=== PATIENT | male | born 1965 | race Caucasian/White ===

== ENCOUNTER 2021-01-26 19:01 | Observation (INO) | payer OTHER ==
[~2021-01-26] VITALS: Ht 175.3 cm; Wt 87.5 kg
[~2021-01-26 19:01] MED LIST: ALBU2.5V8 IH; CETI10TA16 PO; CHLO25CA9 PO; LISI20TA18 PO; LORA-434 PO; PANT40TA77 PO; TRAZ-118 PO; albuterol inhaler; clonazepam; lisinopril; trazodone
[2021-01-27] MEDS ORDERED: MULTIVIT INFUSN,ADULT 4,VIT K 10 ML, THIAMINE INJ 100 MG, FOLIC ACID INJ 1 MG in IV NOR... IV ONE (00:15)
[2021-01-27] MEDS ORDERED: HALOPERIDOL LACTATE 5 MG/ML VIAL. IVP PRN (00:15)
--- NOTE | 2021-01-27 00:26 | PHYS DOC ---
Past Medical History Past Medical History: Hypertension Additional Past Medical Histor: History of pulmonary nodules, alcoholism, hypertension Past Surgical History: No Surgical History Additional Past Surgical Histo: RIGHT ANKLE SURGERY Smoking Status: Current Every Day Smoker Alcohol Use: Heavy Drug Use: None General Adult EDM: Chief Complaint: OTHER COMPLAINTS HPI: HPI: Patient is a 55-year-old male who presents emergency department chief complaint of "I need to stop drinking ". Patient reports drinking a half a gallon of vodka daily, reports his last drink was at 1300 today, reports he has a history of alcohol withdrawal seizures. Patient denies allergies to medications, reports he is homeless, does not have a primary care physician, reports prescription medications as lisinopril, sertraline, and trazodone. Patient reports being a daily cigarette smoker, daily drinker, occasionally smokes marijuana when it is available. Denies chest pain, shortness of breath, visual disturbances, homicidal suicidal ideation, denies dizziness or syncopal episodes. Denies abdominal pain, nausea, vomiting, diarrhea, rashes to the skin denies recent fever or chills, denies other physical complaints or physical concerns Review of Systems: Review of Systems: 14 body systems of review of systems have been reviewed. See HPI for pertinent positives and negative responses, otherwise all other systems are negative, nonpertinent or noncontributory. Constitutional: Negative except as outlined in HPI above. Skin: Negative except as outlined in HPI above. Eyes: Negative except as outlined in HPI above. HENT: Negative except as outlined in HPI above. Respiratory: Negative except as outlined in HPI above. Cardiovascular: Negative except as outlined in HPI above. GI: Negative except as outlined in HPI above. : Negative except as outlined in HPI above. Musculoskeletal: Negative except as outlined in HPI above. Integument: Negative except as outlined in HPI above. Neurologic: Negative except as outlined in HPI above. Endocrine: Negative except as outlined in HPI above. Lymphatic: Negative except as outlined in HPI above. Psychiatric: Negative except as outlined in HPI above. Heart Score: C/O Chest Pain: No Risk Factors: Risk Factors: DM, Current or recent (<one month) smoker, HTN, HLP, family history of CAD, obesity. Risk Scores: Score 0 - 3: 2.5% MACE over next 6 weeks - Discharge Home Score 4 - 6: 20.3% MACE over next 6 weeks - Admit for Clinical Observation Score 7 - 10: 72.7% MACE over next 6 weeks - Early Invasive Strategies Current Medications: Current Medications Medications (Trade) Dose Ordered Sig/Clem Start Time Stop Time Status Last Admin Dose Admin Lorazepam (Ativan Inj) 2 mg 1X ONCE 01/27/21 00:00 01/27/21 00:02 DC Multivitamins 10 ml/Thiamine HCl 100 mg/Folic Acid 1 mg/Sodium Chloride 1,011.2 ml @ 1,000.088 mls/hr 1X ONCE 01/27/21 00:15 01/27/21 01:15 Allergies: Allergies: Allergies Coded Allergies Type Severity Reaction Last Updated Verified No Known Drug Allergies 08/11/13 No Physical Exam: PE: Constitutional: Well developed, well nourished, no acute distress, non-toxic appearance. 55-year-old male in no apparent distress. Strong smell of EtOH during exam. HENT: Normocephalic, atraumatic. Eyes: Conjunctiva normal, no discharge. Neck: Normal range of motion, no stridor. Cardiovascular: No cyanosis appreciated, distal cap refill less than 2 seconds. Lungs & Thorax: Patient is in no respiratory distress, no audible adventitious lung sounds appreciated. Abdomen: Nontender, no abnormalities noted. Skin: Warm, dry, no erythema, no rash. Back: No tenderness, no deformities. Extremities: No tenderness, no cyanosis, no clubbing, ROM intact, no edema. Patient's extremities mild tremor. Distal cap refill less than 2 seconds. Neurologic: Alert and oriented X 3, normal motor function, normal sensory function, no focal deficits noted. Psychologic: Affect normal, judgement normal, mood normal. Current Patient Data: Vital Signs: Vital Signs Date Time Temp Pulse Resp B/P (MAP) Pulse Ox O2 Delivery O2 Flow Rate FiO2 01/26/21 23:44 98.6 102 20 161/90 (113) 93 Room Air 98.6 EKG: EKG: EKG performed at 0006 shows a sinus tachycardia without other ectopy, [place] interval 0.148, QTc interval 0.421, no acute STEMI, no ACS, no acute ischemia appreciated. EKG interpreted by ED attending physician Dr. Batres. [] Radiology/Procedures: Radiology/Procedures: [] Course & Med Decision Making: Course & Med Decision Making Pertinent Labs and Imaging studies reviewed. (See chart for details) 55-year-old male, vital signs reviewed, presents emergency department concerning help with alcohol cessation. Physical exam concerning for delirium tremens, will consult PAT produce team lead for alcoholism/alcohol withdraw detox. EKG, saline lock, banana bag, Ativan, cardiac monitoring, pulse ox monitoring, blood pressure monitoring, patient CIWA score equals 18. Discussed patient case and ED work-up with ED attending physician Dr. Batres, patient to be admitted to Dr. Rajan to telemetry unit for alcohol withdrawal syndrome, delirium tremens, acute alcoholism. Pending PAT produce team lead evaluation. Patient in ED awaiting bed assignment. End of shift report given to Dr. Batres, patient continues to await bed assignment. Irlanda Disclaimer: Irlanda Disclaimer: This electronic medical record was generated, in whole or in part, using a voice recognition dictation system. Departure Departure Impression: Primary Impression: Alcohol intoxication Qualified Codes: F10.929 - Alcohol use, unspecified with intoxication, unspecified Additional Impressions: Alcohol withdrawal syndrome Qualified Codes: F10.239 - Alcohol dependence with withdrawal, unspecified Delirium tremens Alcoholism Disposition: ADMITTED INPATIENT Admitting Physician: YINKA (Admit to Dr. Rajan to telemetry unit) Condition: GUARDED Referrals: NO PCP (PCP) EVAN CLARK APRN Jan 27, 2021 00:26
[2021-01-27 01:21] LABS: BASO % 0 % (0-3); EOS # 0.2 x10^3/uL (0.0-0.7); EOS % 2 % (0-3); HEMATOCRIT 45.6 % (39.0-53.0); HEMOGLOBIN 15.2 g/dL (13.0-17.5); LYMPH % 43 % (24-48); MEAN CORPUSCULAR HEMOGLOBIN 33 pg (25-35); MEAN CORPUSCULAR HGB CONC 33 g/dL (31-37); MEAN CORPUSCULAR VOLUME 99 fL (79-100); MONO # 0.7 x10^3/uL (0.0-1.1); MONO % 10 % (0-9); NEUT # 3.2 x10^3/uL (1.8-7.7); NEUT % 45 % (31-73); PLATELET COUNT 249 x10^3/uL (140-400); RED BLOOD COUNT 4.62 x10^6/uL (4.30-5.70); RED CELL DISTRIBUTION WIDTH 14.3 % (11.5-14.5); WHITE BLOOD COUNT 7.1 x10^3/uL (4.0-11.0)
[2021-01-27 01:29] LABS: CALCIUM 9.1 mg/dL (8.5-10.1); CREATININE 0.9 mg/dL (0.7-1.3); GFR 87.6; POTASSIUM 4.5 mmol/L (3.5-5.1)
[2021-01-27 01:35] LABS: ALBUMIN 3.8 g/dL (3.4-5.0); DIRECT BILIRUBIN 0.2 mg/dL (0.0-0.2); MAGNESIUM 1.9 mg/dL (1.8-2.4); PHOSPHORUS 2.4 mg/dL (2.6-4.7); TOTAL BILIRUBIN 0.2 mg/dL (0.2-1.0); TOTAL PROTEIN 7.6 g/dL (6.4-8.2)
--- NOTE | 2021-01-27 04:36 | RAD ---
EXAM: CHEST ONE VIEW. HISTORY: Tachycardia. COMPARISON: 12/08/2020. FINDINGS: A frontal view of the chest is obtained. There are no confluent infiltrates. There is no pneumothorax or pleural effusion. The heart is not en larged. IMPRESSION: 1. No confluent infiltrates. Electronically signed by: Kay Landeros MD (01/27/2021 4:34 AM) [facility]
[2021-01-27 05:26] VITALS: BP 141/84
--- NOTE | 2021-01-27 05:30 | NUR ---
The patient, TIERRA WHITE, 55 y/o, M admitted by JAMES BARAJAS III, DO, was given written information regarding hospital policies, unit procedures and contact persons. PT IS UNDER THE INFLUENCE, TREMORS AND ANXIEY ARE APPARENT. PT HAS HAD MULTIPLE STAFF ATTEMPT TO INSERT AN IV. SPOKE WITH DR BARAJAS ABOUT IV MEDS TO INCLUDE PO OR IM. WHEEZES IN UPPER LOBES. PT IS UNKEPT. PT STATES HE LIVES UNDER A BRIDGE. Valuables were checked and .AND DOCUMENTED IN THE EMAR LCRN
[2021-01-27] MEDS ORDERED: HALOPERIDOL LACTATE 5 MG/ML VIAL. IM/IV PRN (06:29)
--- NOTE | 2021-01-27 06:59 | EKG ---
[facility] [address] [place] [address] Test Date: 2021-01-27 Test Time: 00:06:36 Pat Name: TIERRA WHITE Department: Room: Gender: M Respiratory Tech: : 1965 Requested By: EVAN CLARK Order Number: [id number] Reading MD: Measurements Intervals [place] Rate: 101 P: 55 CT: 148 QRS: -43 QRSD: 88 T: 51 QT: 324 QTc: 421 Interpretive Statements SINUS TACHYCARDIA ABNORMAL LEFT AXIS DEVIATION R-S TRANSITION ZONE IN V LEADS DISPLACED TO THE RIGHT LEFT ANTERIOR FASCICULAR BLOCK ABNORMAL ECG RI6.01 No previous ECG available for comparison
[2021-01-27] MEDS ORDERED: ACETAMINOPHEN 325 MG TABLET. PO PRN (07:15)
[2021-01-27 07:23] VITALS: BP 140/86
[2021-01-27] MEDS ORDERED: INFLUENZA VAX SCREEN BY RX. MC ONE (09:00)
[2021-01-27] MEDS ORDERED: FLU VACC QUAD 21-22 (6MOS+) PF 0.5 ML SYRINGE. VAX IM ONE (09:00)
[2021-01-27] MEDS ORDERED: MULTIVIT INFUSN,ADULT 4,VIT K 10 ML, THIAMINE INJ 100 MG, FOLIC ACID INJ 1 MG in IV NOR... IV SCH (09:00)
--- NOTE | 2021-01-27 09:27 | HP ---
ADMIT DATE: 01/27/2021 CHIEF COMPLAINT: "I need to stop drinking." HISTORY OF PRESENT ILLNESS: The patient is a pleasant 55-year-old male who drinks and smokes heavily. He presented to the ER with shaking, wants to go through alcohol treatment. I discussed the case with ER physician. We admitted the patient with alcohol withdrawal protocol and we hope to get him to an alcohol treatment center. PAST MEDICAL HISTORY: Alcoholism and tobacco abuse, hypertension, pulmonary nodules, right ankle surgery. ALLERGIES: None. FAMILY HISTORY: Diabetes. SOCIAL HISTORY: He drinks and smokes heavily. MEDICATIONS: Reviewed. Please refer to the MRAD. REVIEW OF SYSTEMS: GENERAL: No history of weight change, weakness or fevers. SKIN: No bruising, hair changes or rashes. EYES: No blurred, double or loss of vision. NOSE AND THROAT: No history of nosebleeds, hoarseness or sore throat. HEART: No history of palpitations, chest pain or shortness of breath on exertion. LUNGS: Denies cough, hemoptysis, wheezing or shortness of breath. GASTROINTESTINAL: Denies changes in appetite, nausea, vomiting, diarrhea or constipation. GENITOURINARY: No history of frequency, urgency, hesitancy or nocturia. NEUROLOGIC: He complains of shaking. PSYCHIATRIC: No history of panic, anxiety or depression. ENDOCRINE: No history of heat or cold intolerance, polyuria or polydipsia. EXTREMITIES: Denies muscle weakness, joint pain, pain on walking or stiffness. PHYSICAL EXAMINATION: VITALS: Within normal limits and are stable. GENERAL: He is sleeping and has a banana bag. HEENT: Normal cephalic atraumatic, external auditory canals are patent EYES: Extraocular muscles are intact, pupils are equally round and reactive to light and accommodation MUSCULOSKELETAL: Well developed, well nourished, good range of motion ENDOCRINE: No thyromegaly was palpated LYMPHATICS: No cervical chain or axillary nodes were noted HEMATOPOIETIC: No bruising NECK: Supple, no JVD, no thyromegaly was noted. LUNGS: Clear to auscultation in all lung novoa without rhonchi or wheezing. HEART: RRR, S1, S2 present. Peripheral pulses intact, no obvious murmurs were noted. ABDOMEN: Soft, nontender. Positive bowel sounds no organomegaly, normal bowel sounds. EXTREMITIES: Without any cyanosis, clubbing, or edema. Pedal pulses intact, Homans sign is negative. NEUROLOGIC: He is currently sleeping. PSYCHIATRIC: He is currently asleep. SKIN: No ulcerations or rashes, good skin turgor, no jaundice. VASCULAR: Good capillary refill, neurovascular bundle appears to be intact. LABORATORY DATA: White count 7, hemoglobin 15. Electrolytes are normal. ASSESSMENT: Alcohol withdrawal. The patient will be admitted. We will use alcohol withdrawal protocol. Consult certified social workers in health care for alcohol treatment center if possible. Home meds. Deep venous thrombosis prophylaxis. Full code. We have given him a flu shot, p.r.n. Ativan, IV banana bag, and rule out COVID-19. ASIF DR: ASIF/chanda TID: [id number]
[2021-01-27 11:00] VITALS: BP 162/115
--- NOTE | 2021-01-27 11:07 | NUR ---
SS following for discharge planning. SS reviewed pt chart and discussed with pt RN. Pt is from home and is currently on room air. COVID19 negative. ETOH. CIWA protocol. PAT team referral made for assessment and recommendations. SS will continue to follow for discharge planning.
--- NOTE | 2021-01-27 11:40 | NUR ---
DISCHARGED PATIENT TO HOME. DISCHARGE INSTRUCTIONS GIVEN TO FAMILY AND VERBALIZED UNDERSTANDING. PIV AND HEART MONITOR REMOVED. ESCORTED PATIENT OFF UNIT PER WHEELCHAIR INTO A PRIVATE VEHICLE. Addendum: 01/27/21 at 1427 by Jose Godfrey RN WRONG PATIENT.
[2021-01-27 15:00] VITALS: BP 152/88
--- NOTE | 2021-01-27 16:30 | NUR ---
SENIOR [employer]UX UNIX ENGINEER ATTEMPTED TO HAVE AN ACCESS MULTIPLE TIMES WITH NO SUCCESS. DR. BARAJAS NOTIFIED.
[2021-01-27 19:00] VITALS: BP 157/90
--- NOTE | 2021-01-27 19:10 | NUR ---
Assessment completed vss pt anxious and all over the bed pt has multiple request at this time will resume care and continue to monitor pt.l Call light in reach.
[2021-01-27] MEDS: HALOPERIDOL 5 MG TABLET. PO PRN (20:29)
[2021-01-27] MEDS: NICOTINE 21MG PATCH. TD SCH (20:30)
[2021-01-27 23:33] VITALS: BP 144/82
[2021-01-28] VITALS (7 sets, daily range): BP systolic 118–169; BP diastolic 68–104
[2021-01-28] MEDS: NICOTINE POLACRILEX 2MG GUM PACKAGE of 12. BC PRN ×7 (06:13→23:30)
[2021-01-28] MEDS: NICOTINE 21MG PATCH. TD SCH (08:46)
[2021-01-28] MEDS: THIAMINE 100 MG TABLET. PO SCH (08:46)
[2021-01-28] MEDS: MULTIVITAMIN with MINERAL TABLET. PO SCH (08:47)
[2021-01-28] MEDS: HALOPERIDOL 5 MG TABLET. PO PRN ×2 (08:47→23:29)
[2021-01-28] MEDS: FOLIC ACID 1 MG TABLET. PO SCH (08:47)
--- NOTE | 2021-01-28 11:56 | PDOC ---
[employer] PROGRESS NOTE Date of Service DOS: DATE: 01/28/21 TIME: 11:46 Chief Complaint Chief Complaint Need help with alcohol cessation Alcoholism Tobacco abuse Hypertension Pulmonary nodules Right ankle surgery History of Present Illness History of Present Illness 01/28/2021 Patient seen and examined. Chart reviewed. Discussed with RN. Patients is shaking at bedside examination. Patient is awake and alert. Rapid blinking. Vitals/I&O Vitals/I&O: Vital Signs Date Time Temp Pulse Resp B/P (MAP) Pulse Ox O2 Delivery O2 Flow Rate FiO2 01/28/21 10:59 98.0 79 22 134/82 (99) 96 Room Air 98.0 I & O 01/27/21 01/27/21 01/28/21 15:00 23:00 07:00 Intake Total 850 ml 1050 ml 1530 ml Output Total 900 ml 900 ml Balance 850 ml 150 ml 630 ml Physical Exam General: Alert, Cooperative Heart: Normal S1, Normal S2, Other (tachycardia) Lungs: Clear Abdomen: Normal bowel sounds Skin: Other (several abrations on the tip of the nose from previous falls.) Assessment and Plan Assessmemt and Plan Problems Medical Problems: (1) Alcohol intoxication Status: Acute (2) Alcohol withdrawal syndrome Status: Acute (3) Alcoholism Status: Acute (4) Delirium tremens Status: Acute Need help with alcohol cessation Alcoholism Tobacco abuse Hypertension Pulmonary nodules Right ankle surgery Plan: Alcohol withdrawal protocol (Ativan, multi-vitamin, thiamine, folic acid) Cardiac monitoring Ordered PT/OT Encourage PO intake Trend labs Home meds Full code Discharge pending disposition Comment Review of Relevant I have reviewed the following items van (where applicable) has been applied. Medications: Current Medications Medications (Trade) Dose Ordered Sig/Clem Route PRN Reason Start Time Stop Time Status Last Admin Dose Admin Thiamine Mononitrate (Vitamin B-1) 100 mg DAILY PO 01/28/21 09:00 01/28/21 08:46 Multivitamins (Thera M Plus) 1 tab DAILY PO 01/28/21 09:00 01/28/21 08:47 Folic Acid (Folic Acid) 1 mg DAILY PO 01/28/21 09:00 01/28/21 08:47 Nicotine (Nicoderm Cq 21mg) 1 patch DAILY TD 01/27/21 20:15 01/28/21 08:46 Nicotine Polacrilex (Nicorette Gum) 1 each PRN Q1HR PRN BC SMOKING CESSATION 01/27/21 20:15 01/28/21 11:00 Justifications for Admission Other Justification JAMES BARAJAS III DO Jan 28, 2021 11:56
--- NOTE | 2021-01-28 12:52 | NUR ---
SS following up with discharge planning. SS reviewed pt chart and discussed with pt RN. Pt is currently on room air. COVID19 negative. Pt reporting that he is homeless. Miko from PAT team visited with pt this morning. PAT team sent referral to [facility] in [facility], . Mirrors checking to see if bed is available today or tomorrow. Pt provided with resources for [facility], [facility], and . Pt encouraged to seek a sponsor. Pt provided contact information to DCF to check on his [employer]. SS will continue to follow for discharge planning. Addendum: 01/28/21 at 1538 by ISIDRO ALVARADO SS Bed available at [facility], [address] [place] [address], [facility] [id number], tomorrow, 01/29/2021, at 1100. Pt will discharge tomorrow and go to [facility] at 09 via [employer] transportation. Tracking#[id number]. Pt, Dr. Rajan, and RN notified.
--- NOTE | 2021-01-28 19:30 | NUR ---
Pt in bed assessment completed vss poc explained pt denied pain, pt anxious and has tremors will medicate pt and resume care.
[2021-01-28] MEDS: cloNIDine HCL 0.1 MG TABLET PO PRN (23:38)
[2021-01-29] MEDS: NICOTINE POLACRILEX 2MG GUM PACKAGE of 12. BC PRN ×3 (02:56→08:27)
[2021-01-29 03:00] VITALS: BP 112/89
[2021-01-29 06:21] VITALS: BP 158/105
--- NOTE | 2021-01-29 07:45 | NUR ---
Assumed care of patient this AM. Patient has pressed the call light repeatedly and aggressively requesting coffee and a "shot". Entered patients room to perform assessment and advised patient that he will discharge this AM to rehab and transport is scheduled for 944. Verbalized understanding
[2021-01-29 08:25] VITALS: BP 158/105
[2021-01-29] MEDS: FOLIC ACID 1 MG TABLET. PO SCH (08:25)
[2021-01-29] MEDS: cloNIDine HCL 0.1 MG TABLET PO PRN (08:25)
[2021-01-29] MEDS: MULTIVITAMIN with MINERAL TABLET. PO SCH (08:25)
[2021-01-29] MEDS: THIAMINE 100 MG TABLET. PO SCH (08:26)
[2021-01-29] MEDS: NICOTINE 21MG PATCH. TD SCH (08:26)
--- NOTE | 2021-01-29 08:38 | SNU/HH DC ---
DISCHARGE ORDERS DISCHARGE INFORMATION: FINAL DIAGNOSIS Problems Medical Problems: (1) Alcohol intoxication Status: Acute (2) Alcohol withdrawal syndrome Status: Acute (3) Alcoholism Status: Acute (4) Delirium tremens Status: Acute CONDITION ON DISCHARGE: Stable CODE STATUS: Code Status: Full GROUP HOME: SNF STAY <30 DAYS: No HOSPICE: HOSPICE: No HOSPICE EVAL & TREAT: No LTAC: ADMIT TO LTAC: No POST DISCHARGE ORDERS: ACTIVITY ORDERS: Activity as tolerated WEIGHT BEARING STATUS: As tolerated DIET AFTER DISCHARGE: Cardiac OTHER ORDERS: Discharge to [facility] rehab CHECKS AFTER DISCHARGE: CHECKS AFTER DISCHARGE: Check blood press - daily TREATMENT/EQUIPMENT ORDERS: ADAPTIVE EQUIPMENT NEEDED: None DISCHARGE MEDICATIONS: Home Meds Active Scripts Lorazepam (ATIVAN) 1 Mg Tablet, 1 MG PO Q4-6HRS PRN for TREMORS, #20 TAB 0 Refills Prov:LAURO LLOYD MD 12/10/20 Trazodone Hcl (TRAZODONE HCL) 50 Mg Tablet, 1 TAB PO QHS for Depression, #30 TAB 2 Refills Prov:LAURO LLOYD MD 12/10/20 Lisinopril (LISINOPRIL) 20 Mg Tablet, 1 TAB PO DAILY for HTN, #30 TAB 5 Refills Prov:LAURO LLOYD MD 12/10/20 Albuterol Sulfate (PROAIR HFA INHALER) 8.5 Gm Hfa.aer.ad, 2 PUFF IH PRN Q4-6HRS PRN for wheezing for 21 Days, #1 INHALER 2 Refills Prov:LAURO LLOYD MD 12/10/20 Pantoprazole Sodium (PANTOPRAZOLE SODIUM ) 40 Mg Tablet.dr, 40 MG PO DAILYAC for GERD, #30 TAB 2 Refills Prov:LAURO LLOYD MD 12/10/20 JAMES BARAJAS III DO Jan 29, 2021 08:38
--- NOTE | 2021-01-29 09:47 | NUR ---
Since speaking with patient this AM, patient has repeatedly pressed call light requesting too leave now. I again advised that transport is scheduled for 944 from an outside transportation. Patient stated he wanted to leave and walked out of his room. When redirected to go back to his room he tried to walk into 2 different patients room. I advised that the next call will be to security if his behavior does not improve.
[2021-01-29] MEDS: HALOPERIDOL 5 MG TABLET. PO PRN (11:18)
--- NOTE | 2021-01-29 14:43 | DS ---
DATE OF DISCHARGE: 01/29/2021 ADMITTING DIAGNOSIS: Alcohol withdrawal. DISCHARGE DIAGNOSIS: Resolving alcohol withdrawal. HOSPITAL COURSE: The patient is a pleasant middle-aged male who presented with alcohol withdrawal. He wants to quit drinking. We gave him alcohol withdrawal protocol. Today, I saw and examined him. He was at his baseline. We are going to discharge to [facility] [place]. DISPOSITION: [facility]. ACTIVITY: As tolerated. DIET: Low sodium. DISCHARGE MEDICATIONS: Please see the MRAD. TOTAL TIME: 32 minutes. IGOR/PAUL DR: Gurdeep TID: [id number]
== END 2021-01-29 11:30 ==
LOC: ER 19:01 → 6 SOUTH 01-27 00:30 → INTOOBSV 01-27 00:30
PROVIDERS: ADMIT Internal Medicine; ATTEND Internal Medicine
DX: F10.231 Alcohol dependence with withdrawal delirium (principal); F17.200 Nicotine dependence, unspecified, uncomplicated; F12.90 Cannabis use, unspecified, uncomplicated; R91.1 Solitary pulmonary nodule; I10 Essential (primary) hypertension; Y90.9 Presence of alcohol in blood, level not specified; Z20.822 Contact with and (suspected) exposure to COVID-19; Z83.3 Family history of diabetes mellitus; Z98.890 Other specified postprocedural states; Z23 Encounter for immunization
CPT/HCPCS: 36415; 71045; 80053; 80076; 82553; 83735; 84100; 84484; 85025; 87426; 90471; 90686; 93005; 96365; 96372; 96375; 99285; G0378; G0480; J1630; J2060; J3411; J3490; J7030; G0379

== ENCOUNTER 2021-06-21 14:40 | Observation (INO) | payer OTHER ==
[~2021-06-21] VITALS: Ht 175.3 cm; Wt 95.3 kg
[2021-06-21] MEDS ORDERED: MULTIVIT INFUSN,ADULT 4,VIT K 10 ML, THIAMINE INJ 100 MG, FOLIC ACID INJ 1 MG in IV NOR... IV ONE (15:00)
[2021-06-21] MEDS ORDERED: ONDANSETRON PF 4 MG/2 ML VIAL. IVP ONE ×2 (15:00→20:30)
--- NOTE | 2021-06-21 15:16 | PHYS DOC ---
Past Medical History Past Medical History: Alcoholism, Hypertension Additional Past Medical Histor: History of pulmonary nodules, alcoholism, hypertension Past Surgical History: Other Additional Past Surgical Histo: RIGHT ANKLE SURGERY Smoking Status: Current Every Day Smoker Alcohol Use: Heavy Drug Use: None General Adult EDM: Chief Complaint: ALCOHOL INTOXICATION HPI: HPI: Patient is a 56 year old male with history of hypertension, alcoholism, who presents to the ED today requesting to go to alcohol rehab facility. Patient states he drinks half a gallon of vodka every day, he states last night he drank heavily. He states he cannot remember how much he drank but it was "alot". He states this morning he tried to detox himself, he states he started shaking and had a 1/4 of beer and started vomiting. He also states he fell down this morning and has an abrasion on the right knee. He states his feet have been numb since yesterday. He is homeless. He states he uses marijuana if he finds some. Denies hitting his head when he fell, denies any loss of consciousness. He states he is a heavy smoker and has a chronic cough. Review of Systems: Review of Systems: Constitutional: Denies fever or chills. [] Eyes: Denies change in visual acuity. [] HENT: Denies nasal congestion or sore throat. [] Respiratory: Reports chronic cough, denies shortness of breath Cardiovascular: Denies chest pain or edema. [] GI: Denies abdominal pain, nausea, vomiting, bloody stools or diarrhea. [] : Denies dysuria. [] Musculoskeletal: Denies any back pain, reports falling on his right knee, reports bilateral feet numbness Integument: Denies rash. [] Neurologic: Denies headache, focal weakness or sensory changes. [] Psychiatric: Reports alcohol intoxication, homelessness Heart Score: C/O Chest Pain: N/A Risk Factors: Risk Factors: DM, Current or recent (<one month) smoker, HTN, HLP, family history of CAD, obesity. Risk Scores: Score 0 - 3: 2.5% MACE over next 6 weeks - Discharge Home Score 4 - 6: 20.3% MACE over next 6 weeks - Admit for Clinical Observation Score 7 - 10: 72.7% MACE over next 6 weeks - Early Invasive Strategies Current Medications: Current Medications Medications (Trade) Dose Ordered Sig/Clem Start Time Stop Time Status Last Admin Dose Admin Lorazepam (Ativan Inj) 1 mg 1X ONCE 06/21/21 15:00 06/21/21 15:01 DC Multivitamins 10 ml/Thiamine HCl 100 mg/Folic Acid 1 mg/Sodium Chloride 1,011.2 ml @ 1,000.088 mls/hr 1X ONCE 06/21/21 15:00 06/21/21 16:00 Ondansetron HCl (Zofran) 4 mg 1X ONCE 06/21/21 15:00 06/21/21 15:01 DC Allergies: Allergies: Allergies Coded Allergies Type Severity Reaction Last Updated Verified No Known Drug Allergies 06/21/21 No Physical Exam: PE: Constitutional: Well developed, well nourished, no acute distress, non-toxic appearance. [] HENT: Normocephalic, atraumatic, bilateral external ears normal, oropharynx moist, no oral exudates, nose normal. [] Eyes: PERRLA, EOMI, conjunctiva normal, no discharge. [] Neck: Normal range of motion, no tenderness, supple, no stridor. [] Cardiovascular: Tachycardic Lungs & Thorax: Bilateral breath sounds clear to auscultation [] Abdomen: Bowel sounds normal, soft, no tenderness, no masses, no pulsatile masses. [] Skin: Warm, dry, no erythema, no rash. [] Back: No tenderness, no CVA tenderness. [] Extremities: Abrasion noted on the right knee anterior aspect, no tenderness, no cyanosis, no clubbing, ROM intact, no edema. [] Neurologic: Alert and oriented X 3, normal motor function, normal sensory function, no focal deficits noted. [] Psychologic: Flat affect, tremors noted, appears intoxicated Current Patient Data: Vital Signs: Vital Signs Date Time Temp Pulse Resp B/P (MAP) Pulse Ox O2 Delivery O2 Flow Rate FiO2 06/21/21 14:40 98.7 118 23 164/103 (123) 96 Room Air 98.7 EKG: EKG: [] Radiology/Procedures: Radiology/Procedures: []PROCEDURE: KNEE RIGHT 4V Exam: XR KNEE 4 VIEWS WITH PATELLA_RT History: Fall. Knee pain. Comparison: None. Findings: Osseous mineralization is normal. No acute fracture or dislocaton. No significant degenerative changes. Soft tissues are unremarkable. Impression: 1. No acute osseous abnormality of the right knee. Electronically signed by: Urbano Carter MD (06/21/2021 4:36 PM) [facility] DICTATED and SIGNED BY: URBANO CARTER MD DATE: 06/21/21 [id number] PROCEDURE: CT HEAD AND CERVICAL SPINE WO CT HEAD AND C-SPINE WO History: Fall. Intoxicated. Head and neck pain. Comparison: None. Technique: Noncontrast CT of the head and cervical spine. Findings: CT HEAD: There is no evidence for intracranial mass or hemorrhage. There is no hydrocephalus or midline shift. No abnormal extra-axial fluid collections are present. No evidence of acute territorial infarction. The visualized paranasal sinuses and mastoid air cells are clear. The skull and scalp are within normal limits. CT CERVICAL SPINE: There is no evidence for fracture in the cervical spine. Reversal the normal cervical lordosis with apex at C4. Multilevel degenerative changes greatest from C3-C4 C5 C5 C6 and C6-C7 with near-complete disc height loss and circumferential disc osteophyte complex. Multilevel neural foraminal stenosis greatest on the right at the C4-C5, C5-C6 and C6-C7. No destructive osseous lesions are seen. Limited evaluation of the soft tissues of the neck and of the upper chest is unremarkable. Impression: 1. No acute intracranial findings. 2. No acute osseous abnormality in the cervical spine. ------- Exposure: One or more of the following individualized dose reduction techniques were utilized for this examination: 1. Automated exposure control 2. Adjustment of the mA and/or kV according to patient size 3. Use of iterative reconstruction technique. Electronically signed by: Urbano Carter MD (06/21/2021 4:21 PM) [facility] DICTATED and SIGNED BY: URBANO CARTER MD DATE: 06/21/21 [id number] 0 Course & Med Decision Making: Course & Med Decision Making Pertinent Labs and Imaging studies reviewed. (See chart for details) This is a 56-year-old male patient with history of alcohol abuse presenting today requesting to go to rehab for alcohol abuse. Patient drank heavily last night, he also drank a quarter bottle of beer today and started vomiting. Patient is also complaining of bilateral feet numbness, he is homeless and walks a lot. He also reports falling this morning denies any loss of consciousness or hitting his head on the ground. CT of the head, cervical spine are negative for any acute findings. Right knee x-ray is negative. CBC with a WBC of 14.5, CMP with nothing really acute, alcohol level 38 Patient has been given IV fluids including banana bag, Ativan given as needed. Ofelia from prior team came to arrange for patient's placement, RSI at the nurses note and stated this patient need to be cleared from COVID19 before they can accept him, they are also complaining patient is documented to have numbness to bilateral feet and they are worried he has a DVT. At this point this patient to be admitted pending the test they want to be admitted at [facility]. Venous Doppler of bilateral lower extremities were obtained which was negative. Irlanda Disclaimer: Irlanda Disclaimer: This electronic medical record was generated, in whole or in part, using a voice recognition dictation system. Departure Departure Impression: Primary Impression: Alcohol intoxication Qualified Codes: F10.929 - Alcohol use, unspecified with intoxication, unspecified Additional Impressions: Delirium tremens Fall Qualified Codes: W19.XXXA - Unspecified fall, initial encounter Contusion of right knee Qualified Codes: S80.01XA - Contusion of right knee, initial encounter Smoking addiction Disposition: ADMITTED INPATIENT Condition: STABLE Referrals: NO PCP (PCP) MARTIN QUINN APRN Jun 21, 2021 15:16
[2021-06-21 16:10] LABS: BASO # 0.2 x10^3/uL (0.0-0.2); BASO % 1 % (0-3); EOS # 0.1 x10^3/uL (0.0-0.7); EOS % 1 % (0-3); HEMATOCRIT 44.8 % (39.0-53.0); HEMOGLOBIN 14.8 g/dL (13.0-17.5); LYMPH # 1.8 x10^3/uL (1.0-4.8); LYMPH % 13 % (24-48); MEAN CORPUSCULAR HEMOGLOBIN 30 pg (25-35); MEAN CORPUSCULAR HGB CONC 33 g/dL (31-37); MEAN CORPUSCULAR VOLUME 92 fL (79-100); MONO # 1.3 x10^3/uL (0.0-1.1); MONO % 9 % (0-9); NEUT % 76 % (31-73); PLATELET COUNT 424 x10^3/uL (140-400); RED BLOOD COUNT 4.87 x10^6/uL (4.30-5.70); RED CELL DISTRIBUTION WIDTH 15.9 % (11.5-14.5); WHITE BLOOD COUNT 14.5 x10^3/uL (4.0-11.0)
[2021-06-21 16:15] LABS: CALCIUM 9.1 mg/dL (8.5-10.1); CREATININE 0.7 mg/dL (0.7-1.3); GFR 116.7; POTASSIUM 4.4 mmol/L (3.5-5.1)
[2021-06-21 16:21] LABS: ALBUMIN 3.7 g/dL (3.4-5.0); ALBUMIN/GLOBULIN RATIO 0.9 (1.0-1.7); TOTAL BILIRUBIN 0.8 mg/dL (0.2-1.0); TOTAL PROTEIN 7.7 g/dL (6.4-8.2)
--- NOTE | 2021-06-21 16:23 | RAD ---
CT HEAD AND C-SPINE WO History: Fall. Intoxicated. Head and neck pain. Comparison: None. Technique: Noncontrast CT of the head and cervical spine. Findings: CT HEAD: There is no evidence for intracranial mass or hemorrhage. There is no hydrocephalus or midline shift. No abnormal extra-axial fluid collections are present. No evidence of acute territorial infarction. The visualized paranasal sinuses and mastoid air cells are clear. The skull and scalp are within normal limits. CT CERVICAL SPINE: There is no evidence for fracture in the cervical spine. Reversal the normal cervical lordosis with apex at C4. Multilevel degenerative changes greatest from C3-C4 C5 C5 C6 and C6-C7 with near-complete disc height loss and circumferential disc osteophyte complex. Multilevel neural foraminal stenosis greatest on t he right at the C4-C5, C5-C6 and C6-C7. No destructive osseous lesions are seen. Limited evaluation of the soft tissues of the neck and of the upper chest is unremarkable. Impression: 1. No acute intracranial findings. 2. No acute osseous abnormality in the cervical spine. ------- Exposure: One or more of the following individualized dose reduction techniques were utilized for thi s examination: 1. Automated exposure control 2. Adjustment of the mA and/or kV according to patient size 3. Use of iterative reconstruction technique. Electronically signed by: Urbano Carter MD (06/21/2021 4:21 PM) [facility]
--- NOTE | 2021-06-21 16:38 | RAD ---
Exam: XR KNEE 4 VIEWS WITH PATELLA_RT History: Fall. Knee pain. Comparison: None. Findings: Osseous mineralization is normal. No acute fracture or dislocaton. No significant degenerative change s. Soft tissues are unremarkable. Impression: 1. No acute osseous abnormality of the right knee. Electronically signed by: Urbano Carter MD (06/21/2021 4:36 PM) [facility]
[2021-06-21 16:42] LABS: ACETAMIN < 2 mcg/ml (10-30); ETHANOL 38 mg/dL (0-10); SALIC 1.4 mg/dL (2.8-20.0)
[2021-06-21 18:12] LABS: BILIRUBIN,URINE NEGATIVE (NEG); CLARITY,URINE CLEAR; COLOR,URINE YELLOW; NITRITE,URINE NEGATIVE (NEG); PROTEIN,URINE NEGATIVE (NEG-TRACE); UROBILINOGEN,URINE 0.2 mg/dL (0.2 mg/dL)
[2021-06-21 18:26] LABS: BACTERIA,URINE 0 /HPF (0-FEW); RBC,URINE 0 /HPF (0-2); WBC,URINE RARE /HPF (0-4)
[2021-06-21 18:41] LABS: AMPHETAMINE/METHAMPHETAMINE NEG (NEG); BARBITURATES NEG (NEG); BENZODIAZEPINES POS (NEG); CANNABINOIDS NEG (NEG); COCAINE NEG (NEG); METHADONE NEG (NEG); OPIATES NEG (NEG); PHENCYCLIDINE NEG (NEG)
[2021-06-21] MEDS ORDERED: NICOTINE 21MG PATCH. TD STA (18:50)
[2021-06-21] MEDS ORDERED: IV NORMAL SALINE 1000ML BAG 1,000 ML IV ONE (20:30)
[2021-06-21] MEDS ORDERED: FAMOTIDINE 20 MG/2 ML VIAL IVP ONE (20:30)
[2021-06-21] MEDS ORDERED: ACETAMINOPHEN 325 MG TABLET. PO PRN (23:15)
[2021-06-21] MEDS ORDERED: cloNIDine HCL 0.1 MG TABLET PO PRN (23:15)
[2021-06-21] MEDS ORDERED: ONDANSETRON PF 4 MG/2 ML VIAL. IVP PRN (23:15)
--- NOTE | 2021-06-22 00:35 | RAD ---
Exam: US BILATERAL LOWEREXTREMITY VENOUS DOPPLER Indication: B feet numbness swelling Technique: Color-flow and pulsed wave duplex ultrasound with compression of venous structures of th e bilateral lower extremities. Comparison: None Available. Findings: Duplex ultrasound with compression of the deep venous structures of the bilateral lower ext remities from the common femoral vein through the popliteal vein is negative for DVT. The posterior t ibial and peroneal veins are segmentally visualized and patent where seen. Normal venous waveforms an d augmentation are noted throughout. Impression: No evidence for DVT in the bilateral lower extremities. Electronically signed by: Raghu Islas MD (06/22/2021 12:33 AM) [facility]
--- NOTE | 2021-06-22 00:40 | NUR ---
The patient, TIERRA WHITE, 56 y/o, M admitted by FIORDALIZA MENDOZA MD, for ETOH to room 526 was given written information regarding hospital policies, unit procedures and contact persons. HIPPA code given to Patient. Patient oriented to room, bed, phone, call light and POC. Call light in reach, Patient instructed to call for assistance to ambulate. Patient verbalized understanding. See admission assessment/documentation. Valuables were checked and Patient requesting medications not sent to Pharmacy as he misplaced claim slip last time and was unable to get medications from Pharmacy. Patient states "I want them as close to me as possible." Patient agrreable to lock up in med room.
[2021-06-22 00:45] VITALS: BP 163/111
--- NOTE | 2021-06-22 01:55 | RAD ---
XR CHEST 1V INDICATION: cough . COMPARISON STUDY: 01/27/2021. FINDINGS: Lungs: Normal lung volume. No pulmonary mass or consolidation. The tracheobronchial tree and hilar st ructures are normal. Pleura: No pleural effusion or pneumothorax. Heart and Mediastinum: The cardiomediastinal silhouette is normal. The great vessels of the thorax ar e normal. IMPRESSION: No consolidation. Electronically signed by: Raghu Islas MD (06/22/2021 1:52 AM) [facility]
[2021-06-22 03:00] VITALS: BP 143/72
[2021-06-22] MEDS ORDERED: LISI-130 PO (03:03)
[2021-06-22] MEDS ORDERED: DULO30CA2 PO (03:05)
[2021-06-22] MEDS ORDERED: HYDR25TA PO (03:06)
[2021-06-22] MEDS ORDERED: BUSP10TA PO (03:06)
[2021-06-22] MEDS ORDERED: TRAZ-123 PO (03:07)
[2021-06-22] MEDS ORDERED: CARV12.511 PO (03:10)
--- NOTE | 2021-06-22 05:19 | NUR ---
Medications counted and placed in security bag. Contents 1 ironer or presser, 1 bottle of Trazodone 100Mg 8 tablets, Blue bottle of Hydroxyzine HCL 25 MG 70 tablets, Carvedilol 12.5 MG 176 tablets, Zapata bottle Hydroxyzine HCL 25 MG 13 tablets, Buspirone 10 MG 57 tablets, Duloxetine DR 30 MG 27 tablets, Lisinopril 40 MG 88 tablets. Placed in med room until family could come get or medication sent to Pharmacy after family comes to see Patient. Addendum: 06/22/21 at 0528 by NINOSKA ROY RN claim slip [id number] stuck in clear sleeve in Patient's chart.
[2021-06-22 07:00] VITALS: BP 158/59
[2021-06-22] MEDS ORDERED: ACETAMINOPHEN 325 MG TABLET. PO PRN (07:15)
[2021-06-22] MEDS ORDERED: ONDANSETRON PF 4 MG/2 ML VIAL. IVP PRN (07:15)
--- NOTE | 2021-06-22 07:28 | PDOC1 ---
History and Physical Date of Admission Date of Admission DATE: 06/22/21 TIME: 07:08 Identification/Chief Complaint Chief Complaint Alcohol withdrawal Source Source: Chart review, Patient History of Present Illness History of Present Illness Mr Modi is a 56 yo male w/ PMHx HTN, alcohol use disorder who presents to the ED c/o tremors, felt he was detoxing from alcohol. Patient states he drinks half a gallon of vodka every day and when he felt he was withdrawing he tried to drink a beer and vomited. He also states he fell down and has an abrasion on the right knee. He states his feet have been numb for a couple days. He is homeless, sleeps on friends couches, and is trying to get into a skilled nursing. He states he is a heavy smoker and has a chronic cough. Asking for nicotine patch + gum. No recent travel or sick contacts. WBC 14.5, Hb 14.8, platelets 424, NA 137, K4.4, BUN 5, CR 0.7, glucose 106, calcium 9.1, bilirubin 0.8, AST 14, ALT 17, alkaline phosphatase 69, lipase 60, albumin 3.7, urine drug screen positive for ethanol and benzodiazepines ethyl alcohol at 1453 was 38, acetaminophen undetectable, salicylate 1.4. Urine bland. CT head and cervical spine with no acute abnormalities. Chest radiograph no acute abnormalities Right knee radiograph with no abnormalities Lower extremity venous Dopplers negative for DVT Past Medical History Cardiovascular: HTN Psych: Anxiety, Addictions Past Surgical History Past Surgical History: Tonsillectomy Family History Family History: Hypertension Social History Smoke: 2 packs per day ALCOHOL: heavy Drugs: None Current Problem List Problem List Problems Medical Problems: (1) Alcohol intoxication Status: Acute (2) Contusion of right knee Status: Acute (3) Delirium tremens Status: Acute (4) Fall Status: Acute (5) Smoking addiction Status: Acute Current Medications Current Medications Current Medications Multivitamins 10 ml/Thiamine HCl 100 mg/Folic Acid 1 mg/Sodium Chloride 1,011.2 ml @ 1,000.088 mls/hr 1X ONCE IV Last administered on 06/21/21at 15:53; Start 06/21/21 at 15:00; Stop 06/21/21 at 16:00; Status DC Lorazepam (Ativan Inj) 1 mg 1X ONCE IVP Last administered on 06/21/21at 15:53; Start 06/21/21 at 15:00; Stop 06/21/21 at 15:01; Status DC Ondansetron HCl (Zofran) 4 mg 1X ONCE IVP Last administered on 06/21/21at 15:53; Start 06/21/21 at 15:00; Stop 06/21/21 at 15:01; Status DC Lorazepam (Ativan Inj) 1 mg 1X ONCE IVP Last administered on 06/21/21at 17:21; Start 06/21/21 at 17:30; Stop 06/21/21 at 17:31; Status DC Nicotine (Nicoderm Cq 21mg) 1 patch 1X STAT TD Last administered on 06/21/21at 19:19; Start 06/21/21 at 18:50; Stop 06/21/21 at 18:51; Status DC Lorazepam (Ativan Inj) 2 mg 1X ONCE IVP Last administered on 06/21/21at 20:51; Start 06/21/21 at 20:30; Stop 06/21/21 at 20:31; Status DC Sodium Chloride 1,000 ml @ 1,000 mls/hr 1X ONCE IV Last administered on 06/21/21at 20:53; Start 06/21/21 at 20:30; Stop 06/21/21 at 21:29; Status DC Ondansetron HCl (Zofran) 4 mg 1X ONCE IVP Last administered on 06/21/21at 21:03; Start 06/21/21 at 20:30; Stop 06/21/21 at 20:31; Status DC Famotidine (Pepcid Vial) 20 mg 1X ONCE IVP Last administered on 06/21/21at 21:04; Start 06/21/21 at 20:30; Stop 06/21/21 at 20:31; Status DC Ondansetron HCl (Zofran) 4 mg PRN Q8HRS PRN IVP NAUSEA/VOMITING 1ST CHOICE; Start 06/21/21 at 23:15; Stop 06/22/21 at 23:14 Acetaminophen (Tylenol) 650 mg PRN Q4HRS PRN PO FEVER > 100.3'F; Start 06/21/21 at 23:15; Stop 06/22/21 at 23:14 Multivitamins 10 ml/Thiamine HCl 100 mg/Folic Acid 1 mg/Sodium Chloride 1,011.2 ml @ 100 mls/ hr DAILY IV ; Start 06/22/21 at 09:00; Stop 06/25/21 at 19:07 Lorazepam (Ativan Inj) 2 mg PRN Q1HR PRN IV For CIWA 8-14 Last administered on 06/22/21at 02:47; Start 06/21/21 at 23:15 Clonidine HCl (Catapres) 0.1 mg PRN Q1HR PRN PO SBP > 180 or DBP > 100, MRX3; Start 06/21/21 at 23:15 Active Scripts Active Proair Hfa Inhaler (Albuterol Sulfate) 8.5 Gm Hfa.aer.ad 2 Puff IH PRN Q4-6HRS PRN 21 Days Reported Carvedilol (Carvedilol) 12.5 Mg Tablet 12.5 Mg PO BIDWMEALS Trazodone Hcl 100 Mg Tablet 1 Tab PO QHS Hydroxyzine Hcl 25 Mg Tablet 1 Tab PO TID Buspirone Hcl 10 Mg Tablet 1 Tab PO BID Cymbalta (Duloxetine Hcl) 30 Mg Capsule.dr 1 Cap PO DAILY Lisinopril 40 Mg Tablet 1 Tab PO DAILY Allergies Allergies: Coded Allergies: No Known Drug Allergies (Unverified , 06/21/21) ROS General: YES: Fatigue, Malaise; No: Chills, Night Sweats, Appetite, Other PSYCHOLOGICAL ROS: YES: Anxiety, Irritablity, Memory difficulties, Mood Swings, Obsessive thoughts; No: Behavioral Disorder, Concentration difficultie, Decreased libido, Depression, Disorientation, Hallucinations, Hostility, Physical abuse, Sexual abuse, Sleep disturbances, Suicidal ideation, Other Eyes: No Blurry vision, No Decreased vision, No Double vision, No Dry eyes, No Excessive tearing, No Eye Pain, No Itchy Eyes, No Loss of vision, No Photophobia, No Scotomata, No Uses contacts, No Uses glasses, No Other HEENT: No: Heacaches, Visual Changes, Hearing change, Nasal congestion, Nasal discharge, Oral lesions, Sinus pain, Sore Throat, Epistaxis, Sneezing, Snoring, Tinnitus, Vertigo, Vocal changes, Other ALLERGY AND IMMUNOLOGY: No: Hives, Insect Bite Sensitivity, Itchy/Watery Eyes, Nasal Congestion, Post Nasal Drip, Seasonal Allergies, Other Hematological and Lymphatic: No: Bleeding Problems, Blood Clots, Blood Transfusions, Brusing, Night Sweats, Pallor, Swollen Lymph Nodes, Other ENDOCRINE: No: Breast Changes, Galactorrhea, Hair Pattern Changes, Hot Flashes, Malaise/lethargy, Mood Swings, Palpitations, Polydipsia/polyuria, Skin Changes, Temperature Intolerance, Unexpected Weight Changes, Other Breast: No New/Changing Breast Lumps, No Nipple changes, No Nipple discharge, No Other Respiratory: No: Cough, Hemoptysis, Orthopnea, Pleuritic Pain, Shortness of breath, SOB with excertion, Sputum Changes, Stridor, Tachypnea, Wheezing, Other Cardiovascular: No Chest Pain, No Palpitations, No Orthopnea, No Paroxysmal Noc. Dyspnea, No Edema, No Lt Headedness, No Other Gastrointestinal: No Nausea, No Vomiting, No Abdominal Pain, No Diarrhea, No Constipation, No Melena, No Hematochezia, No Other Genitourinary: No Dysuria, No Frequency, No Incontinence, No Hematuria, No Retention, No Discharge, No Urgency, No Pain, No Flank Pain, No Other, No , No , No , No , No , No , No Musculoskeletal: No Gait Disturbance, No Joint Pain, No Joint Stiffness, No Joint Swelling, No Muscle Pain, No Muscular Weakness, No Pain In:, No Swelling In:, No Other Neurological: No Behavorial Changes, No Bowel/Bladder ControlChng, No Con fusion, No Dizziness, No Gait Disturbance, No Headaches, No Impaired Coord/balance, No Memory Loss, No Numbness/Tingling, No Seizures, No Speech Problems, No Tremors, No Visual Changes, No Weakness, No Other Skin: No Dry Skin, No Eczema, No Hair Changes, No Lumps, No Mole Changes, No Mottling, No Nail Changes, No Pruritus, No Rash, No Skin Lesion Changes, No O ther, No Acne Physical Exam General: Alert, Oriented X3, Cooperative, mild distress HEENT: Atraumatic, PERRLA, EOMI, Mucous membr. moist/pink Lungs: Clear to auscultation, Normal air movement Heart: S1S2, RRR, no thrills, no rubs, no gallops, no murmurs Abdomen: Normal bowel sounds, Soft, No tenderness, No hepatosplenomegaly, No masses Rectal Exam: not examined Extremities: No clubbing, No cyanosis, No edema, Normal pulses, No tenderness/swelling Skin: No rashes, No breakdown, No significant lesion Neuro: Normal gait, Normal speech, Strength at 5/5 X4 ext, Normal tone, Sensation intact, Cranial nerves 3-12 NL, Reflexes 2+ Psych/Mental Status: Mental status NL, Mood NL Vitals Vitals Vital Signs Date Time Temp Pulse Resp B/P (MAP) Pulse Ox O2 Delivery O2 Flow Rate FiO2 06/22/21 03:00 98.0 101 20 143/72 (95) 94 Room Air 98.0 Labs Labs Laboratory Tests Test 06/21/21 14:53 06/21/21 18:04 White Blood Count 14.5 x10^3/uL (4.0-11.0) Red Blood Count 4.87 x10^6/uL (4.30-5.70) Hemoglobin 14.8 g/dL (13.0-17.5) Hematocrit 44.8 % (39.0-53.0) Mean Corpuscular Volume 92 fL (79-100) Mean Corpuscular Hemoglobin 30 pg (25-35) Mean Corpuscular Hemoglobin Concent 33 g/dL (31-37) Red Cell Distribution Width 15.9 % (11.5-14.5) Platelet Count 424 x10^3/uL (140-400) Neutrophils (%) (Auto) 76 % (31-73) Lymphocytes (%) (Auto) 13 % (24-48) Monocytes (%) (Auto) 9 % (0-9) Eosinophils (%) (Auto) 1 % (0-3) Basophils (%) (Auto) 1 % (0-3) Neutrophils # (Auto) 11.0 x10^3/uL (1.8-7.7) Lymphocytes # (Auto) 1.8 x10^3/uL (1.0-4.8) Monocytes # (Auto) 1.3 x10^3/uL (0.0-1.1) Eosinophils # (Auto) 0.1 x10^3/uL (0.0-0.7) Basophils # (Auto) 0.2 x10^3/uL (0.0-0.2) Sodium Level 137 mmol/L (136-145) Potassium Level 4.4 mmol/L (3.5-5.1) Chloride Level 98 mmol/L (98-107) Carbon Dioxide Level 23 mmol/L (21-32) Anion Gap 16 (6-14) Blood Urea Nitrogen 5 mg/dL (8-26) Creatinine 0.7 mg/dL (0.7-1.3) Estimated GFR (Cockcroft-Gault) 116.7 BUN/Creatinine Ratio 7 (6-20) Glucose Level 106 mg/dL (70-99) Calcium Level 9.1 mg/dL (8.5-10.1) Total Bilirubin 0.8 mg/dL (0.2-1.0) Aspartate Amino Transf (AST/SGOT) 14 U/L (15-37) Alanine Aminotransferase (ALT/SGPT) 17 U/L (16-63) Alkaline Phosphatase 69 U/L (46-116) Total Protein 7.7 g/dL (6.4-8.2) Albumin 3.7 g/dL (3.4-5.0) Albumin/Globulin Ratio 0.9 (1.0-1.7) Lipase 60 U/L (73-393) Salicylates Level 1.4 mg/dL (2.8-20.0) Salicylate Last Dose Date Salicylate Last Dose Time Acetaminophen Level < 2 mcg/ml (10-30) Acetaminophen Last Dose Date Acetaminophen Last Dose Time Ethyl Alcohol Level 38 mg/dL (0-10) Urine Color Yellow Urine Clarity Clear Urine pH 6.0 (<5.0-8.0) Urine Specific [place] <=1.005 (1.000-1.030) Urine Protein Negative mg/dL (NEG-TRACE) Urine Glucose (UA) Negative mg/dL (NEG) Urine Ketones (Stick) Negative mg/dL (NEG) Urine Blood Negative (NEG) Urine Nitrite Negative (NEG) Urine Bilirubin Negative (NEG) Urine Urobilinogen Dipstick 0.2 mg/dL (0.2 mg/dL) Urine Leukocyte Esterase Negative (NEG) Urine RBC 0 /HPF (0-2) Urine WBC Rare /HPF (0-4) Urine Squamous Epithelial Cells Occ /LPF Urine Bacteria 0 /HPF (0-FEW) Urine Opiates Screen Neg (NEG) Urine Methadone Screen Neg (NEG) Urine Barbiturates Neg (NEG) Urine Phencyclidine Screen Neg (NEG) Urine Amphetamine/Methamphetamine Neg (NEG) Urine Benzodiazepines Screen Pos (NEG) Urine Cocaine Screen Neg (NEG) Urine Cannabinoids Screen Neg (NEG) Urine Ethyl Alcohol Pos (NEG) Laboratory Tests Test 06/21/21 14:53 06/21/21 18:04 White Blood Count 14.5 x10^3/uL (4.0-11.0) Red Blood Count 4.87 x10^6/uL (4.30-5.70) Hemoglobin 14.8 g/dL (13.0-17.5) Hematocrit 44.8 % (39.0-53.0) Mean Corpuscular Volume 92 fL (79-100) Mean Corpuscular Hemoglobin 30 pg (25-35) Mean Corpuscular Hemoglobin Concent 33 g/dL (31-37) Red Cell Distribution Width 15.9 % (11.5-14.5) Platelet Count 424 x10^3/uL (140-400) Neutrophils (%) (Auto) 76 % (31-73) Lymphocytes (%) (Auto) 13 % (24-48) Monocytes (%) (Auto) 9 % (0-9) Eosinophils (%) (Auto) 1 % (0-3) Basophils (%) (Auto) 1 % (0-3) Neutrophils # (Auto) 11.0 x10^3/uL (1.8-7.7) Lymphocytes # (Auto) 1.8 x10^3/uL (1.0-4.8) Monocytes # (Auto) 1.3 x10^3/uL (0.0-1.1) Eosinophils # (Auto) 0.1 x10^3/uL (0.0-0.7) Basophils # (Auto) 0.2 x10^3/uL (0.0-0.2) Sodium Level 137 mmol/L (136-145) Potassium Level 4.4 mmol/L (3.5-5.1) Chloride Level 98 mmol/L (98-107) Carbon Dioxide Level 23 mmol/L (21-32) Anion Gap 16 (6-14) Blood Urea Nitrogen 5 mg/dL (8-26) Creatinine 0.7 mg/dL (0.7-1.3) Estimated GFR (Cockcroft-Gault) 116.7 BUN/Creatinine Ratio 7 (6-20) Glucose Level 106 mg/dL (70-99) Calcium Level 9.1 mg/dL (8.5-10.1) Total Bilirubin 0.8 mg/dL (0.2-1.0) Aspartate Amino Transf (AST/SGOT) 14 U/L (15-37) Alanine Aminotransferase (ALT/SGPT) 17 U/L (16-63) Alkaline Phosphatase 69 U/L (46-116) Total Protein 7.7 g/dL (6.4-8.2) Albumin 3.7 g/dL (3.4-5.0) Albumin/Globulin Ratio 0.9 (1.0-1.7) Lipase 60 U/L (73-393) Salicylates Level 1.4 mg/dL (2.8-20.0) Salicylate Last Dose Date Salicylate Last Dose Time Acetaminophen Level < 2 mcg/ml (10-30) Acetaminophen Last Dose Date Acetaminophen Last Dose Time Ethyl Alcohol Level 38 mg/dL (0-10) Urine Color Yellow Urine Clarity Clear Urine pH 6.0 (<5.0-8.0) Urine Specific [place] <=1.005 (1.000-1.030) Urine Protein Negative mg/dL (NEG-TRACE) Urine Glucose (UA) Negative mg/dL (NEG) Urine Ketones (Stick) Negative mg/dL (NEG) Urine Blood Negative (NEG) Urine Nitrite Negative (NEG) Urine Bilirubin Negative (NEG) Urine Urobilinogen Dipstick 0.2 mg/dL (0.2 mg/dL) Urine Leukocyte Esterase Negative (NEG) Urine RBC 0 /HPF (0-2) Urine WBC Rare /HPF (0-4) Urine Squamous Epithelial Cells Occ /LPF Urine Bacteria 0 /HPF (0-FEW) Urine Opiates Screen Neg (NEG) Urine Methadone Screen Neg (NEG) Urine Barbiturates Neg (NEG) Urine Phencyclidine Screen Neg (NEG) Urine Amphetamine/Methamphetamine Neg (NEG) Urine Benzodiazepines Screen Pos (NEG) Urine Cocaine Screen Neg (NEG) Urine Cannabinoids Screen Neg (NEG) Urine Ethyl Alcohol Pos (NEG) Images Images XR KNEE 4 VIEWS WITH PATELLA_RT Findings: Osseous mineralization is normal. No acute fracture or dislocaton. No significant degenerative changes. Soft tissues are unremarkable. Impression: 1. No acute osseous abnormality of the right knee. CT HEAD AND C-SPINE WO: CT HEAD: There is no evidence for intracranial mass or hemorrhage. There is no hydrocephalus or midline shift. No abnormal extra-axial fluid collections are present. No evidence of acute territorial infarction. The visualized paranasal sinuses and mastoid air cells are clear. The skull and scalp are within normal limits. CT CERVICAL SPINE: There is no evidence for fracture in the cervical spine. Reversal the normal cervical lordosis with apex at C4. Multilevel degenerative changes greatest from C3-C4 C5 C5 C6 and C6-C7 with near-complete disc height loss and circumferential disc osteophyte complex. Multilevel neural foraminal stenosis greatest on the right at the C4-C5, C5-C6 and C6-C7. No destructive osseous lesions are seen. Limited evaluation of the soft tissues of the neck and of the upper chest is unremarkable. Impression: 1. No acute intracranial findings. 2. No acute osseous abnormality in the cervical spine. Chest radiograph: Lungs: Normal lung volume. No pulmonary mass or consolidation. The tracheobronchial tree and hilar structures are normal. Pleura: No pleural effusion or pneumothorax. Heart and Mediastinum: The cardiomediastinal silhouette is normal. The great ves sels of the thorax are normal. IMPRESSION: No consolidation. US BILATERAL LOWEREXTREMITY VENOUS DOPPLER: Findings: Duplex ultrasound with compression of the deep venous structures of the bilateral lower extremities from the common femoral vein through the popliteal vein is negative for DVT. The posterior tibial and peroneal veins are segmentally visualized and patent where seen. Normal venous waveforms and augmentation are noted throughout. Impression: No evidence for DVT in the bilateral lower extremities. VTE Prophylaxis Ordered VTE Prophylaxis Devices: No VTE Pharmacological Prophylaxi: No Assessment/Plan Assessment/Plan Acute alcohol withdrawal - already mild withdrawal while still intoxicated Leukocytosis - likely reactive, will monitor. 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 Counseled extensively FEN - Regular diet PPX - ambulatory FULL CODE Dispo - inpatient Justifications for Admission Other Justification ALEKSEY SCHULTZ MD Jun 22, 2021 07:28
[2021-06-22] MEDS: MULTIVITAMIN with MINERAL TABLET. PO SCH (08:10)
[2021-06-22] MEDS: FOLIC ACID 1 MG TABLET. PO SCH (08:10)
[2021-06-22] MEDS: THIAMINE 100 MG TABLET. PO SCH (08:10)
[2021-06-22] MEDS: GABAPENTIN 300 MG CAPSULE. PO SCH ×3 (08:10→20:35)
[2021-06-22] MEDS ORDERED: MULTIVIT INFUSN,ADULT 4,VIT K 10 ML, THIAMINE INJ 100 MG, FOLIC ACID INJ 1 MG in IV NOR... IV SCH (09:00)
[2021-06-22 09:22] LABS: ALBUMIN 3.5 g/dL (3.4-5.0); ALBUMIN/GLOBULIN RATIO 0.9 (1.0-1.7); CALCIUM 8.6 mg/dL (8.5-10.1); CREATININE 0.7 mg/dL (0.7-1.3); GFR 116.7; POTASSIUM 4.2 mmol/L (3.5-5.1); TOTAL BILIRUBIN 0.8 mg/dL (0.2-1.0); TOTAL PROTEIN 7.3 g/dL (6.4-8.2)
[2021-06-22] MEDS: NICOTINE POLACRILEX 2MG GUM PACKAGE of 12. BC PRN ×5 (10:27→14:20)
[2021-06-22 10:49] LABS: BASO # 0.2 x10^3/uL (0.0-0.2); BASO % 3 % (0-3); EOS # 0.5 x10^3/uL (0.0-0.7); EOS % 7 % (0-3); HEMATOCRIT 40.3 % (39.0-53.0); HEMOGLOBIN 13.4 g/dL (13.0-17.5); LYMPH # 1.5 x10^3/uL (1.0-4.8); LYMPH % 23 % (24-48); MEAN CORPUSCULAR HEMOGLOBIN 31 pg (25-35); MEAN CORPUSCULAR HGB CONC 33 g/dL (31-37); MEAN CORPUSCULAR VOLUME 92 fL (79-100); MONO # 0.8 x10^3/uL (0.0-1.1); MONO % 12 % (0-9); NEUT # 3.6 x10^3/uL (1.8-7.7); NEUT % 55 % (31-73); PLATELET COUNT 357 x10^3/uL (140-400); RED BLOOD COUNT 4.36 x10^6/uL (4.30-5.70); RED CELL DISTRIBUTION WIDTH 15.8 % (11.5-14.5); WHITE BLOOD COUNT 6.5 x10^3/uL (4.0-11.0)
--- NOTE | 2021-06-22 11:41 | NUR ---
[facility] following. Discussed with RN, pt homeless, room air, cardiac diet. PAT consult. Awaiting outcome. Pt has numbers for [id number] in [employer] at request. [facility] will continue to follow. Addendum: 06/22/21 at 1410 by CATRACHITO SCHAEFER Miko GONZALEZ) met with patient, pt does not want help, wants to discharge. Has information for homeless shelters. PAT team very familiar with pt, and this is pt's response every time he is offered help/ assistance.
[2021-06-22] MEDS: HALOPERIDOL LACTATE 5 MG/ML VIAL. IVP PRN ×2 (14:19→22:03)
[2021-06-22 23:00] VITALS: BP 162/103
[2021-06-23] MEDS: NICOTINE POLACRILEX 2MG GUM PACKAGE of 12. BC PRN ×3 (03:00→16:56)
[2021-06-23 07:00] VITALS: BP 128/88
[2021-06-23] MEDS: FOLIC ACID 1 MG TABLET. PO SCH (10:04)
[2021-06-23] MEDS: MULTIVITAMIN with MINERAL TABLET. PO SCH (10:04)
[2021-06-23] MEDS: THIAMINE 100 MG TABLET. PO SCH (10:04)
[2021-06-23] MEDS: GABAPENTIN 300 MG CAPSULE. PO SCH ×2 (10:04→14:00)
[2021-06-23] MEDS ORDERED: PANT40TA77 PO (12:23)
--- NOTE | 2021-06-23 12:31 | PDOC ---
[facility] PROGRESS NOTE Date of Service DOS: DATE: 06/23/21 TIME: 12:28 Chief Complaint Chief Complaint Acute alcohol withdrawal - already mild withdrawal while still intoxicated. 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 Counseled extensively Housing insecurity -given information for local nonprofit [employer] [facility] and will be staying at the [address] [facility] FEN - Regular diet PPX - ambulatory FULL CODE Dispo - inpatient History of Present Illness History of Present Illness Mr Modi is a 56 yo male w/ PMHx HTN, alcohol use disorder who presents to the ED c/o tremors, felt he was detoxing from alcohol. Patient states he drinks half a gallon of vodka every day and when he felt he was withdrawing he tried to drink a beer and vomited. He also states he fell down and has an abrasion on the right knee. He states his feet have been numb for a couple days. He is homeless, sleeps on friends couches, and is trying to get into a prison. He states he is a heavy smoker and has a chronic cough. Asking for nicotine patch + gum. No recent travel or sick contacts. WBC 14.5, Hb 14.8, platelets 424, NA 137, K4.4, BUN 5, CR 0.7, glucose 106, calcium 9.1, bilirubin 0.8, AST 14, ALT 17, alkaline phosphatase 69, lipase 60, albumin 3.7, urine drug screen positive for ethanol and benzodiazepines ethyl alcohol at 1453 was 38, acetaminophen undetectable, salicylate 1.4. Urine bland. CT head and cervical spine with no acute abnormalities. Chest radiograph no acute abnormalities Right knee radiograph with no abnormalities Lower extremity venous Dopplers negative for DVT. 06/23: Feeling better only needed 1 p.o. lorazepam. No chest pain. Numbness in hi s feet clinically improved he has Appetite asking for PPI. He spoke with psychiatric assessment team nurse liaison and declined alcohol rehabilitation services he said he just needs somewhere to live and is asking if he can have a ride to a local homeless prison [facility] 1020 Vitals/I&O Vitals/I&O: Vital Signs Date Time Temp Pulse Resp B/P (MAP) Pulse Ox O2 Delivery O2 Flow Rate FiO2 06/23/21 07:00 97.8 85 20 128/88 (101) 90 97.8 06/22/21 19:15 Room Air I & O 06/22/21 06/22/21 06/23/21 15:00 23:00 07:00 Intake Total 960 ml 120 ml Output Total 1000 ml Balance 960 ml 120 ml -1000 ml Physical Exam General: Alert, Oriented X3, Cooperative, mild distress Lungs: Clear Abdomen: Normal bowel sounds, Soft, No tenderness, No hepatosplenomegaly, No masses Extremities: No clubbing, No cyanosis, No edema, Normal pulses, No tenderness/swelling Skin: No rashes, No breakdown, No significant lesion Assessment and Plan Assessmemt and Plan Problems Medical Problems: (1) Alcohol intoxication Status: Acute (2) Contusion of right knee Status: Acute (3) Delirium tremens Status: Acute (4) Fall Status: Acute (5) Smoking addiction Status: Acute Comment Review of Relevant I have reviewed the following items van (where applicable) has been applied. Medications: Current Medications Medications (Trade) Dose Ordered Sig/Clem Route PRN Reason Start Time Stop Time Status Last Admin Dose Admin Haloperidol Lactate (Haldol Inj) 5 mg PRN Q6HRS PRN IVP AGITATION- 2ND CHOICE 06/22/21 14:15 06/22/21 22:03 Justifications for Admission Other Justification ALEKSEY SCHULTZ MD Jun 23, 2021 12:31
--- NOTE | 2021-06-23 12:33 | PDOC3 ---
Discharge Summary Visit Information Date of Admission: Jun 21, 2021 Date of Discharge: Jun 23, 2021 Admitting Diagnosis: Alcohol intoxication Final Diagnosis Problems Medical Problems: (1) Alcohol intoxication Status: Acute (2) Contusion of right knee Status: Acute (3) Delirium tremens Status: Acute (4) Fall Status: Acute (5) Smoking addiction Status: Acute Brief Hospital Course Allergies Allergies Coded Allergies Type Severity Reaction Last Updated Verified No Known Drug Allergies 06/21/21 No Vital Signs Vital Signs Date Time Temp Pulse Resp B/P (MAP) Pulse Ox O2 Delivery O2 Flow Rate FiO2 06/23/21 07:00 97.8 85 20 128/88 (101) 90 97.8 06/22/21 19:15 Room Air Lab Results Laboratory Tests Test 06/21/21 14:53 06/21/21 18:04 06/22/21 08:10 06/22/21 10:00 White Blood Count 14.5 x10^3/uL (4.0-11.0) 6.5 x10^3/uL (4.0-11.0) Red Blood Count 4.87 x10^6/uL (4.30-5.70) 4.36 x10^6/uL (4.30-5.70) Hemoglobin 14.8 g/dL (13.0-17.5) 13.4 g/dL (13.0-17.5) Hematocrit 44.8 % (39.0-53.0) 40.3 % (39.0-53.0) Mean Corpuscular Volume 92 fL (79-100) 92 fL (79-100) Mean Corpuscular Hemoglobin 30 pg (25-35) 31 pg (25-35) Mean Corpuscular Hemoglobin Concent 33 g/dL (31-37) 33 g/dL (31-37) Red Cell Distribution Width 15.9 % (11.5-14.5) 15.8 % (11.5-14.5) Platelet Count 424 x10^3/uL (140-400) 357 x10^3/uL (140-400) Neutrophils (%) (Auto) 76 % (31-73) 55 % (31-73) Lymphocytes (%) (Auto) 13 % (24-48) 23 % (24-48) Monocytes (%) (Auto) 9 % (0-9) 12 % (0-9) Eosinophils (%) (Auto) 1 % (0-3) 7 % (0-3) Basophils (%) (Auto) 1 % (0-3) 3 % (0-3) Neutrophils # (Auto) 11.0 x10^3/uL (1.8-7.7) 3.6 x10^3/uL (1.8-7.7) Lymphocytes # (Auto) 1.8 x10^3/uL (1.0-4.8) 1.5 x10^3/uL (1.0-4.8) Monocytes # (Auto) 1.3 x10^3/uL (0.0-1.1) 0.8 x10^3/uL (0.0-1.1) Eosinophils # (Auto) 0.1 x10^3/uL (0.0-0.7) 0.5 x10^3/uL (0.0-0.7) Basophils # (Auto) 0.2 x10^3/uL (0.0-0.2) 0.2 x10^3/uL (0.0-0.2) Sodium Level 137 mmol/L (136-145) 138 mmol/L (136-145) Potassium Level 4.4 mmol/L (3.5-5.1) 4.2 mmol/L (3.5-5.1) Chloride Level 98 mmol/L (98-107) 103 mmol/L (98-107) Carbon Dioxide Level 23 mmol/L (21-32) 26 mmol/L (21-32) Anion Gap 16 (6-14) 9 (6-14) Blood Urea Nitrogen 5 mg/dL (8-26) 5 mg/dL (8-26) Creatinine 0.7 mg/dL (0.7-1.3) 0.7 mg/dL (0.7-1.3) Estimated GFR (Cockcroft-Gault) 116.7 116.7 BUN/Creatinine Ratio 7 (6-20) 7 (6-20) Glucose Level 106 mg/dL (70-99) 91 mg/dL (70-99) Calcium Level 9.1 mg/dL (8.5-10.1) 8.6 mg/dL (8.5-10.1) Total Bilirubin 0.8 mg/dL (0.2-1.0) 0.8 mg/dL (0.2-1.0) Aspartate Amino Transf (AST/SGOT) 14 U/L (15-37) 27 U/L (15-37) Alanine Aminotransferase (ALT/SGPT) 17 U/L (16-63) 17 U/L (16-63) Alkaline Phosphatase 69 U/L (46-116) 75 U/L (46-116) Total Protein 7.7 g/dL (6.4-8.2) 7.3 g/dL (6.4-8.2) Albumin 3.7 g/dL (3.4-5.0) 3.5 g/dL (3.4-5.0) Albumin/Globulin Ratio 0.9 (1.0-1.7) 0.9 (1.0-1.7) Lipase 60 U/L (73-393) Salicylates Level 1.4 mg/dL (2.8-20.0) Salicylate Last Dose Date Salicylate Last Dose Time Acetaminophen Level < 2 mcg/ml (10-30) Acetaminophen Last Dose Date Acetaminophen Last Dose Time Ethyl Alcohol Level 38 mg/dL (0-10) Urine Color Yellow Urine Clarity Clear Urine pH 6.0 (<5.0-8.0) Urine Specific [place] <=1.005 (1.000-1.030) Urine Protein Negative mg/dL (NEG-TRACE) Urine Glucose (UA) Negative mg/dL (NEG) Urine Ketones (Stick) Negative mg/dL (NEG) Urine Blood Negative (NEG) Urine Nitrite Negative (NEG) Urine Bilirubin Negative (NEG) Urine Urobilinogen Dipstick 0.2 mg/dL (0.2 mg/dL) Urine Leukocyte Esterase Negative (NEG) Urine RBC 0 /HPF (0-2) Urine WBC Rare /HPF (0-4) Urine Squamous Epithelial Cells Occ /LPF Urine Bacteria 0 /HPF (0-FEW) Urine Opiates Screen Neg (NEG) Urine Methadone Screen Neg (NEG) Urine Barbiturates Neg (NEG) Urine Phencyclidine Screen Neg (NEG) Urine Amphetamine/Methamphetamine Neg (NEG) Urine Benzodiazepines Screen Pos (NEG) Urine Cocaine Screen Neg (NEG) Urine Cannabinoids Screen Neg (NEG) Urine Ethyl Alcohol Pos (NEG) Magnesium Level 2.3 mg/dL (1.8-2.4) Vitamin B12 Level 463 pg/mL (247-911) Thyroid Stimulating Hormone (TSH) 0.681 uIU/mL (0.358-3.74) Test 06/22/21 11:30 Coronavirus (COVID-19)(PCR) Not detected (NOT DETECTD) SARS-CoV-2 Antigen (Rapid) Negative (NEGATIVE) Brief Hospital Course Mr Modi is a 56 yo male w/ PMHx HTN, alcohol use disorder who presents to the ED c/o tremors, felt he was detoxing from alcohol. Patient states he drinks half a gallon of vodka every day and when he felt he was withdrawing he tried to drink a beer and vomited. He also states he fell down and has an abrasion on the right knee. He states his feet have been numb for a couple days. He is homeless, sleeps on friends couches, and is trying to get into a snf. He states he is a heavy smoker and has a chronic cough. Asking for nicotine patch + gum. No recent travel or sick contacts. WBC 14.5, Hb 14.8, platelets 424, NA 137, K4.4, BUN 5, CR 0.7, glucose 106, calcium 9.1, bilirubin 0.8, AST 14, ALT 17, alkaline phosphatase 69, lipase 60, albumin 3.7, urine drug screen positive for ethanol and benzodiazepines ethyl alcohol at 1453 was 38, acetaminophen undetectable, salicylate 1.4. Urine bland. CT head and cervical spine with no acute abnormalities. Chest radiograph no acute abnormalities Right knee radiograph with no abnormalities Lower extremity venous Dopplers negative for DVT. 06/23: Feeling better only needed 1 p.o. lorazepam. No chest pain. Numbness in his feet clinically improved he has Appetite asking for PPI. He spoke with psychiatric assessment team nurse liaison and declined alcohol rehabilitation services he said he just needs somewhere to live and is asking if he can have a ride to a local homeless snf [place] [address] Problem list: Acute alcohol withdrawal - already mild withdrawal while still intoxicated. 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 Counseled extensively Housing insecurity -given information for local nonprofit [facility] and will be staying at the [address] in [facility] Greater than 30 minutes spent on d/c to homeless snf Discharge Information Condition at Discharge: Improved Follow Up: Weeks (1) Disposition/Orders: D/C to a Care Home Scheduled Pantoprazole Sodium (Protonix ) 40 Mg Tablet., 40 MG PO DAILYAC for GERD for 30 Days, #30 Prescribed by: ALEKSEY SCHULTZ MD on 06/23/21 1223 Scheduled PRN Albuterol Sulfate (Proair Hfa Inhaler) 8.5 Gm Hfa.aer.ad, 2 PUFF IH PRN Q4-6HRS PRN for wheezing for 21 Days, #1 Ref 2 Prescribed by: LAURO LLOYD MD on 12/10/20 1255 Last Action: Reviewed on 06/22/21310 by NINOSKA ROY Discontinued Medications Buspirone Hcl (Buspirone Hcl) 10 Mg Tablet, 1 TAB PO BID for depression, #60 Ref 1 (Reported) Entered as Reported by: NINOSKA ROY on 06/22/21305 Last Action: New Order on 06/22/21305 by NINOSKA ROY Carvedilol (Carvedilol ) 12.5 Mg Tablet, 12.5 MG PO BIDWMEALS for CARDIAC, (Reported) Entered as Reported by: NINOSKA ROY on 06/22/21309 Last Action: New Order on 06/22/21309 by NINOSKA ROY Duloxetine Hcl (Cymbalta) 30 Mg Capsule., 1 CAP PO DAILY for depression, #30 Ref 5 (Reported) Entered as Reported by: NINOSKA ROY on 06/22/21304 Last Action: New Order on 06/22/21304 by NINOSKA ROY Hydroxyzine Hcl (Hydroxyzine Hcl) 25 Mg Tablet, 1 TAB PO TID for anxiety, #30 (Reported) Entered as Reported by: NINOSKA ROY on 06/22/21305 Last Action: New Order on 06/22/21305 by NINOSKA ROY Lisinopril (Lisinopril) 40 Mg Tablet, 1 TAB PO DAILY for hypertension, #30 Ref 5 (Reported) Entered as Reported by: NINOSKA ROY on 06/22/21302 Last Action: New Order on 06/22/21302 by NINOSKA ROY Trazodone Hcl (Trazodone Hcl) 100 Mg Tablet, 1 TAB PO QHS for sleep, #30 Ref 1 (Reported) Entered as Reported by: NINOSKA ROY on 06/22/21306 Last Action: New Order on 06/22/21306 by NINOSKA ROY Justicifation of Admission Dx: Justifications for Admission: Justification of Admission Dx: Yes ALEKSEY SCHULTZ MD Jun 23, 2021 12:33
--- NOTE | 2021-06-23 14:35 | NUR ---
SW following. Discussed with RN, pt discharging to [facility] early this evening. No further SW needs.
[2021-06-23 16:23] VITALS: BP 128/88
[2021-06-23] MEDS ORDERED: ONDANSETRON ODT 4 MG TAB.RAPDIS. PO ONE (16:45)
--- NOTE | 2021-06-23 17:30 | NUR ---
pt discharged to [facility] ([facility] discharge instructions reviewed with patient, voiced understanding. pt transported off unit via wheelchair with all belonings, and bag of home medications. cab fare provided to patient and receipt sent to nursing supervisor [employer].
== END 2021-06-23 17:45 | disposition home or self-care (01) ==
LOC: ER 14:40 → INTOOBSV 22:01 → 5 NORTH 22:01
PROVIDERS: ADMIT Internal Medicine; ATTEND Internal Medicine
DX: F10.231 Alcohol dependence with withdrawal delirium (principal); Z20.822 Contact with and (suspected) exposure to COVID-19; D72.829 Elevated white blood cell count, unspecified; F10.229 Alcohol dependence with intoxication, unspecified; I10 Essential (primary) hypertension; M48.02 Spinal stenosis, cervical region; S80.01XA Contusion of right knee, initial encounter; S80.211A Abrasion, right knee, initial encounter; M25.78 Osteophyte, vertebrae; G62.9 Polyneuropathy, unspecified; F12.90 Cannabis use, unspecified, uncomplicated; F17.210 Nicotine dependence, cigarettes, uncomplicated; Z59.01 Sheltered homelessness; Z79.899 Other long term (current) drug therapy; Z98.890 Other specified postprocedural states; Z86.718 Personal history of other venous thrombosis and embolism; W19.XXXA Unspecified fall, initial encounter; Y92.89 Other specified places as the place of occurrence of the external cause; Y93.89 Activity, other specified; Y99.8 Other external cause status
CPT/HCPCS: 36415; 70450; 71045; 72125; 73564; 80053; 80307; 80329; 81001; 82607; 83690; 83735; 84443; 85025; 87426; 93970; 96361; 96365; 96366; 96375; 96376; 99285; G0378; G0480; J1630; J2060; J2405; J3411; J3490; J7030; U0003; G0379

== ENCOUNTER 2021-06-26 15:46 | Emergency (ER) | payer OTHER ==
[~2021-06-26] VITALS: Ht 175.3 cm; Wt 86.0 kg
[~2021-06-26 15:46] MED LIST changes: +BUSP10TA PO; +CARV12.511 PO; +DULO30CA2 PO; +HYDR25TA PO; +LISI-130 PO; +TRAZ-123 PO
[2021-06-26] MEDS ORDERED: ONDANSETRON PF 4 MG/2 ML VIAL. IVP ONE (16:00)
[2021-06-26] MEDS ORDERED: IV RINGERS,LACTATED 1000ML 1,000 ML IV ONE (16:00)
[2021-06-26] MEDS ORDERED: THIAMINE 100 MG TABLET. PO SCH (16:00)
[2021-06-26 16:40] LABS: AMPHETAMINE/METHAMPHETAMINE NEG (NEG); BARBITURATES NEG (NEG); BENZODIAZEPINES NEG (NEG); CANNABINOIDS NEG (NEG); COCAINE NEG (NEG); METHADONE NEG (NEG); OPIATES NEG (NEG); PHENCYCLIDINE NEG (NEG)
[2021-06-26 17:44] LABS: BASO # 0.2 x10^3/uL (0.0-0.2); BASO % 2 % (0-3); EOS # 0.3 x10^3/uL (0.0-0.7); EOS % 3 % (0-3); HEMATOCRIT 49.2 % (39.0-53.0); HEMOGLOBIN 16.2 g/dL (13.0-17.5); LYMPH # 2.6 x10^3/uL (1.0-4.8); LYMPH % 28 % (24-48); MEAN CORPUSCULAR HEMOGLOBIN 31 pg (25-35); MEAN CORPUSCULAR HGB CONC 33 g/dL (31-37); MEAN CORPUSCULAR VOLUME 94 fL (79-100); MONO # 0.6 x10^3/uL (0.0-1.1); MONO % 6 % (0-9); NEUT # 5.6 x10^3/uL (1.8-7.7); NEUT % 61 % (31-73); PLATELET COUNT 189 x10^3/uL (140-400); RED BLOOD COUNT 5.26 x10^6/uL (4.30-5.70); RED CELL DISTRIBUTION WIDTH 15.7 % (11.5-14.5); WHITE BLOOD COUNT 9.2 x10^3/uL (4.0-11.0)
--- NOTE | 2021-06-26 18:17 | PHYS DOC ---
Past Medical History Past Medical History: Alcoholism, Hypertension Additional Past Medical Histor: History of pulmonary nodules, alcoholic seiz ures, hypertension (JULIO JAIMES MD) Past Surgical History: Other Additional Past Surgical Histo: RIGHT ANKLE SURGERY (JULIO JAIMES MD) Smoking Status: Current Every Day Smoker Alcohol Use: Heavy Drug Use: None (JULIO JAIMES MD) General Adult EDM: Chief Complaint: ALCOHOL INTOXICATION HPI: HPI: Patient is a 56 year old male with hx of ETOH abuse who presents requesting Ativan for alcohol withdrawal. Patient states that he drinks 1/2 gallon of vodka per day typically. He ran out of money today and so called EMS to bring him to the hospital. States that he drank a single 12 ounce 5.9% beer today, and has began feeling shaky and nauseous. States that he has had history of withdrawal seizures in the past and has required hospitalization for alcohol withdrawal before. He is a daily smoker. Denies other drug use. Denies any recent falls or head trauma. (JULIO JAIMES MD) Review of Systems: Review of Systems: Constitutional: Denies fever or chills. [] Eyes: Denies change in visual acuity. [] HENT: Denies nasal congestion or sore throat. [] Respiratory: Denies cough or shortness of breath. [] Cardiovascular: Denies chest pain or edema. [] GI: Reports nausea denies abdominal pain, bloody stools or diarrhea. [] : Denies dysuria. [] Musculoskeletal: Denies back pain or joint pain. [] Integument: Denies rash. [] Neurologic: Reports shakiness. Denies headache, focal weakness or sensory changes. [] Psychiatric: Denies depression or anxiety. [] (JULIO JAIMES MD) Heart Score: C/O Chest Pain: No (JULIO JAIMES MD) Current Medications: Current Medications Medications (Trade) Dose Ordered Sig/Clem Start Time Stop Time Status Last Admin Dose Admin Ondansetron HCl (Zofran) 4 mg 1X ONCE 06/26/21 16:00 06/26/21 16:01 DC Ringer's Solution 1,000 ml @ 1,000 mls/hr 1X ONCE 06/26/21 16:00 06/26/21 16:59 DC Thiamine Mononitrate (Vitamin B-1) 100 mg DAILY 06/26/21 16:00 (JULIO JAIMES MD) Allergies: Allergies: Allergies Coded Allergies Type Severity Reaction Last Updated Verified No Known Drug Allergies 06/21/21 No (JULIO JAIMES MD) Physical Exam: PE: Constitutional: Slow but stable gait, ambulates into the ED. No acute distress. HENT: Normocephalic, atraumatic, Eyes: PERRLA, EOMI Neck: Normal range of motion, no tenderness, supple, no stridor. [] Cardiovascular: Slight tachycardia, regular. Lungs & Thorax: Bilateral breath sounds clear to auscultation [] Abdomen: Bowel sounds normal, soft, no tenderness, no masses, no pulsatile masses. [] Skin: Warm, dry, no erythema, no rash. [] Back: No tenderness, no CVA tenderness. [] Extremities: No tenderness, no cyanosis, no clubbing, ROM intact, no edema. [] Neurologic: Alert, oriented x3, slurred speech consistent with alcohol intoxication, moving all extremities purposefully with intact strength grossly. Mild tremor with arms out reached. Linear and logical. Psychologic: Affect normal, judgement normal, mood normal. [] (JULIO JAIMES MD) Current Patient Data: Labs: Laboratory Tests Test 06/26/21 16:20 06/26/21 17:40 Urine Opiates Screen Neg (NEG) Urine Methadone Screen Neg (NEG) Urine Barbiturates Neg (NEG) Urine Phencyclidine Screen Neg (NEG) Urine Amphetamine/Methamphetamine Neg (NEG) Urine Benzodiazepines Screen Neg (NEG) Urine Cocaine Screen Neg (NEG) Urine Cannabinoids Screen Neg (NEG) Urine Ethyl Alcohol Pos (NEG) White Blood Count 9.2 x10^3/uL (4.0-11.0) Red Blood Count 5.26 x10^6/uL (4.30-5.70) Hemoglobin 16.2 g/dL (13.0-17.5) Hematocrit 49.2 % (39.0-53.0) Mean Corpuscular Volume 94 fL (79-100) Mean Corpuscular Hemoglobin 31 pg (25-35) Mean Corpuscular Hemoglobin Concent 33 g/dL (31-37) Red Cell Distribution Width 15.7 % (11.5-14.5) H Platelet Count 189 x10^3/uL (140-400) Neutrophils (%) (Auto) 61 % (31-73) Lymphocytes (%) (Auto) 28 % (24-48) Monocytes (%) (Auto) 6 % (0-9) Eosinophils (%) (Auto) 3 % (0-3) Basophils (%) (Auto) 2 % (0-3) Neutrophils # (Auto) 5.6 x10^3/uL (1.8-7.7) Lymphocytes # (Auto) 2.6 x10^3/uL (1.0-4.8) Monocytes # (Auto) 0.6 x10^3/uL (0.0-1.1) Eosinophils # (Auto) 0.3 x10^3/uL (0.0-0.7) Basophils # (Auto) 0.2 x10^3/uL (0.0-0.2) Laboratory Tests 06/26/21 17:40 Vital Signs: Vital Signs Date Time Temp Pulse Resp B/P (MAP) Pulse Ox O2 Delivery O2 Flow Rate FiO2 06/26/21 15:48 98.7 104 12 176/114 (134) 96 Room Air 98.7 (JULIO JAIMES MD) EKG: EKG: [] (JULIO JAIMES MD) Radiology/Procedures: Radiology/Procedures: [] (JULIO JAIMES MD) Course & Med Decision Making: Course & Med Decision Making Pertinent Labs and Imaging studies reviewed. (See chart for details) Patient is a 56-year-old male with history of alcohol abuse who presents to the emergency department requesting Ativan and alcohol detox after he ran out of money to purchase more alcohol. On arrival is slightly tachycardic and hypertensive, slightly tremulous. He is slurring his speech significantly consistent with current alcohol intoxication. Due to his slurred speech I have deferred Ativan treatment for now. Folate, thiamine, IV fluids, and Zofran have been ordered. Lab work-up including CBC, CMP, ethanol, UDS ordered. Patient states that he does want re sources for alcohol detoxification. PAT team consulted to discuss options. Signed out to oncoming physician with labs and PAT consult pending. 621 (JULIO JAIMES MD) Course & Med Decision Making I received signout at shift change from Dr. Jaimes. Patient's lab shows alcohol intoxication. On evaluation patient is speaking in clear sentences with no tremors or tongue fasciculations. Patient with no hallucinations or abnormal behavior. Patient has a steady gait and medical decision-making capacity, is not a danger to himself or others. Patient is clinically sober on reevaluation. PAT team assessed patient and has been given resources for her side martín case. Will provide cab voucher. Will also prescribe multivitamins with folic acid and recommend alcohol cessation with treatment program. Will discharge home with strict ED return precautions were given for confusion, hallucinations or intractable nausea or vomiting. Encouraged urgent outpatient follow-up with PMD for routine care and RSI for detox. Life-threatening processes were considered but are low suspicion at this time, given history, physical exam and ED workup. Pt was educated on all prescription medications and adverse effects. All patient's questions were answered and pt was stable at time of discharge. Life/limb-threatening differential includes but is not limited to, end organ damage/sepsis, trauma/abuse/neglect, neurologic deficit, alcohol/drug ingestion, toxidrome, suicidal/homicidal ideations plans or attempts, psychosis or mental illness resulting in self neglect and inability to care for self. I have spoken with the patient and/or caregivers. I explained the patient's condition, diagnoses and treatment plan based on the information available to me at this time. I have answered the patient and/or caregiver's questions and addressed any concerns. The patient and/or caregivers have a good understanding of patient's diagnosis, condition and treatment plan as can be expected at this point. Vital signs have been stable. Patient's condition is stable and appropriate for discharge from the emergency department. Patient will pursue further outpatient evaluation with primary care physician or other designated or consulting physician as outlined in the discharge instructions. The patient and/or caregivers are agreeable to this plan of care and follow-up instructions have been explained in detail. The patient and/or caregivers have received these instructions in written form and have expressed an understanding of the discharge instructions. The patient and/or caregivers are aware that any significant change of condition or worsening of symptoms should prompt immediate return to this or the closest emergency department or call to 911. (LENY THAYER DO) Irlanda Disclaimer: Irlanda Disclaimer: This electronic medical record was generated, in whole or in part, using a voice recognition dictation system. (JULIO JAIMES MD) Departure Departure Impression: Primary Impression: Alcohol intoxication Additional Impression: Alcoholism Disposition: 01 HOME / SELF CARE / HOMELESS Condition: STABLE Referrals: NO PCP (PCP) Follow-up with your primary care physician in 24 to 48 hours OR FOLLOW UP WITH FAMILY MEDICINE: [address] [place] [address] Patient Instructions: Alcohol Intoxication, Alcohol Problems, Alcohol Withdrawal Additional Instructions: [facility]. AND FOR SUBSTANCE ABUSE MANAGEMENT [address] [place] [address] 24-hour crisis line: [phone] EMERGENCY DEPARTMENT GENERAL DISCHARGE INSTRUCTIONS Thank you for coming to [facility] Emergency Department (ED) today and trusting us with you care. We trust that you had a positive experience in our Emergency Department. If you wish to speak to the department management, you may call the Director at [phone]. YOUR FOLLOW UP INSTRUCTIONS ARE FOLLOWS: 1. Do you have a private Doctor? If you do not have a private doctor, please ask for a resource list of physicians or clinics that may be able to assist you with follow up care. 2. The Emergency Physicain has interpreted your x-rays. The X-Ray specialist will also review them. If there is a change in the findings, you will be notified in 48 h ours when at all possible. 3. A lab test or culture has been done, your results will be reviewed and you will be notified if you need a change in treatment. ADDITIONAL INSTRUCTIONS AND INFORMATION: 1. Your care today has been supervised by a physician who is specially trained in emergency care. Many problems require more than one evaluation for a complete diagnosis and treatment. We recommend that you schedule your follow up appointment as recommended to ensure complete treatment of you illness or injury. If you are unable to obtain follow up care and continue to have a problem, or if your condition worsens, we recommend that you return to the ED. 2. We are not able to safely determine your condition over the phone nor are we able to give sound medical advice over the phone. For these safety reasons, if you call for medical advice we will ask you to come to the ED for further evaluation. 3. If you have any questions regarding these discharge instructions please call the ED at [phone]. SAFETY INFORMATION: In the interest of safety, wellness, and injury prevention; we encourage you to wear your sealbelt, if you smoke; quite smoking, and we encourage family to use a protective helmet for bicycling and other sporting events that present an increased risk for head injury. IF YOUR SYMPTOMS WORSEN OR NEW SYMPTOMS DEVELOP, OR YOU HAVE CONCERNS ABOUT YOUR CONDITION; OR IF YOUR CONDITION WORSENS WHILE YOU ARE WAITING FOR YOUR FOLLOW UP APPOINTMENT; EITHER CONTACT YOUR PRIMARY CARE DOCTOR, THE PHYSICIAN WHOSE NAME AND NUMBER YOU WERE GIVEN, OR RETURN TO THE ED IMMEDIATELY. Scripts Multivitamin With Folic Acid (ONE DAILY ESSENTIAL TABLET) 400 Mcg Tablet 1 TAB PO DAILY for 30 Days, #30 TAB 2 Refills Prov: LENY THAYER DO 06/26/21 JULIO JAIMES MD Jun 26, 2021 18:17 LENY THAYER DO Jun 26, 2021 21:22
[2021-06-26 18:32] LABS: CALCIUM 8.9 mg/dL (8.5-10.1); CREATININE 0.6 mg/dL (0.7-1.3); GFR 139.4; POTASSIUM 4.4 mmol/L (3.5-5.1)
[2021-06-26 18:34] LABS: TOTAL BILIRUBIN 0.4 mg/dL (0.2-1.0); TOTAL PROTEIN 7.9 g/dL (6.4-8.2)
[2021-06-26 21:06] VITALS: BP 148/80
[2021-06-26] MEDS ORDERED: MULT400T5 PO (21:18)
== END 2021-06-26 21:32 | disposition home or self-care (01) ==
LOC: ER 15:46
DX: F10.229 Alcohol dependence with intoxication, unspecified (principal); F10.239 Alcohol dependence with withdrawal, unspecified; Y90.8 Blood alcohol level of 240 mg/100 ml or more; I10 Essential (primary) hypertension; F17.200 Nicotine dependence, unspecified, uncomplicated
CPT/HCPCS: 36415; 80053; 80307; 85025; 96361; 96374; 99285; G0480; J2405; J7120